=== PATIENT | female | born 1965 | race Caucasian/White ===

== ENCOUNTER 2017-06-01 16:31 | Emergency (ER) | payer OTHER ==
[~2017-06-01] VITALS: Ht 165.1 cm; Wt 114.6 kg
[2017-06-01] MEDS ORDERED: ARTHROTEC EC 71 EAC1 PO (16:41)
[2017-06-01] MEDS ORDERED: ADVAIR HFA 230M12 GM INH (16:42)
[2017-06-01] MEDS ORDERED: DETROL LA4 MG PO (16:42)
[2017-06-01] MEDS ORDERED: NEURONTIN 300300 M1 PO (16:42)
[2017-06-01] MEDS ORDERED: VENTOLIN HFA 1818 GM INH (16:43)
[2017-06-01 17:28] LABS: INFLUENZA B ANTIGEN None Detected (None Detect)
[2017-06-01 17:30] LABS: ABSOLUTE BASOPHILS 0.1 thou/uL (0.0-0.2); ABSOLUTE LYMPHOCYTES 2.1 thou/uL (0.8-5.3); ABSOLUTE MONOCYTES 0.7 thou/uL (0.0-1.2); ABSOLUTE NEUTROPHILS 3.2 thou/uL (1.6-8.1); EOSINOPHILS 0.2 %; HEMATOCRIT 43.8 % (37.0-47.0); HEMOGLOBIN 14.8 gm/dL (12.0-15.0); LYMPHOCYTES 33.9 %; MCH 30.5 pg (26.0-34.0); MCHC 33.9 g/dL (28.0-37.0); MONOCYTES 11.6 %; MPV 9.4 fl. (7.2-11.1); NUCLEATED RBCS 0 /100WBC; PLATELET COUNT* 162 thou/uL (150-400); POLYS 53.3 %; RBC 4.87 mil/uL (4.20-5.00); RDW-CV 13.7 % (10.5-14.5); WBC 6.1 thou/uL (4.0-11.0)
[2017-06-01 17:47] LABS: ANION GAP 6 mmol/L (7-16); BUN 8 mg/dL (7-18); CALCIUM 8.2 mg/dL (8.5-10.1); CHLORIDE 107 mmol/L (98-107); CO2 28 mmol/L (21-32); CREATININE 0.7 mg/dL (0.6-1.3); GLUCOSE 186 mg/dL (70-99); POTASSIUM 4.1 mmol/L (3.5-5.1); SODIUM 141 mmol/L (136-145)
[2017-06-01 17:59] LABS: ALBUMIN 2.7 g/dL (3.4-5.0); ALKALINE PHOSPHATASE 81 U/L (46-116); SGOT 43 U/L (15-37); SGPT 42 U/L (30-65); TOTAL BILIRUBIN 0.2 mg/dL (<0.1-1.0); TOTAL PROTEIN 7.3 g/dL (6.4-8.2); TROPONIN-I LEVEL <0.06 ng/mL (<0.06)
[2017-06-01] MEDS ORDERED: ZPAK PO (18:22)
[2017-06-01] MEDS ORDERED: PROMETHAZINE V473 ML PO (18:22)
[2017-06-01] MEDS ORDERED: PROAIR HFA8.5 GM INH (18:22)
[2017-06-01] MEDS ORDERED: TESSALON PERLE100 MG PO (18:22)
[2017-06-01] MEDS ORDERED: PREDNISONE 20 M20 MG PO (18:22)
[2017-06-01 18:49] VITALS: BP 142/68
== END 2017-06-01 18:50 | disposition home or self-care (01) ==
LOC: M.ERS 16:31
PROVIDERS: Physician Assistant
DX: J09.X2 Influenza due to identified novel influenza A virus with other respiratory manifestations (principal); J20.9 Acute bronchitis, unspecified; J44.9 Chronic obstructive pulmonary disease, unspecified; M19.90 Unspecified osteoarthritis, unspecified site; G62.9 Polyneuropathy, unspecified; F17.200 Nicotine dependence, unspecified, uncomplicated; Z88.8 Allergy status to other drugs, medicaments and biological substances

== ENCOUNTER 2020-01-10 16:10 | Emergency (ER) | payer OTHER ==
[~2020-01-10] VITALS: Ht 165.1 cm; Wt 113.4 kg
[~2020-01-10 16:10] MED LIST: ADVAIR HFA 230M12 GM INH; ARTHROTEC EC 71 EAC1 PO; DETROL LA4 MG PO; NEURONTIN 300300 M1 PO; PREDNISONE 20 M20 MG PO; PROAIR HFA8.5 GM INH; PROMETHAZINE V473 ML PO; TESSALON PERLE100 MG PO; VENTOLIN HFA 1818 GM INH; ZPAK PO
[2020-01-10 16:37] LABS: BE -2.3 mmol/L (-2 to +3); PCO2 VENOUS 41.1 mmHg (41.0-51.0); PO2 VENOUS 59.2 mmHg (35.0-45.0)
[2020-01-10 16:38] LABS: ABSOLUTE BASOPHILS 0.1 thou/uL (0.0-0.2); ABSOLUTE EOSINOPHILS 0.1 thou/uL (0.0-0.7); ABSOLUTE LYMPHOCYTES 3.4 thou/uL (0.8-5.3); ABSOLUTE MONOCYTES 0.5 thou/uL (0.0-1.2); ABSOLUTE NEUTROPHILS 5.8 thou/uL (1.6-8.1); BASOPHILS 1.3 %; EOSINOPHILS 1.4 %; LYMPHOCYTES 34.4 %; MCH 31.1 pg (26.0-34.0); MCHC 35.5 g/dL (28.0-37.0); MCV 87.6 fL (80.0-100.0); MONOCYTES 4.7 %; MPV 10.2 fl. (7.2-11.1); NUCLEATED RBCS 0 /100WBC; PLATELET COUNT* 166 thou/uL (150-400); POLYS 58.2 %; RBC 5.13 mil/uL (4.20-5.00); RDW-CV 13.2 % (10.5-14.5); WBC 9.9 thou/uL (4.0-11.0)
[2020-01-10 16:49] LABS: APTT 26.6 Seconds (25.0-31.3); PROTIME 10.2 Seconds (9.20-11.50)
[2020-01-10 16:54] LABS: URINE BILIRUBIN NEGATIVE (Negative); URINE BLOOD TRACE (Negative); URINE CLARITY CLEAR; URINE COLOR YELLOW; URINE GLUCOSE-RANDOM 3+ (Negative); URINE KETONES 1+ (Negative); URINE LEUKOCYTES-REFLEX NEGATIVE (Negative); URINE NITRITE-REFLEX NEGATIVE (Negative); URINE PROTEIN 2+ (Negative); URINE SPECIFIC GRAVITY >= 1.030 (1.005-1.030); URINE UROBILINOGEN 0.2 E.U./dl (0.2-1.0)
[2020-01-10 16:58] LABS: CALCIUM 8.5 mg/dL (8.5-10.1); POTASSIUM 4.2 mmol/L (3.5-5.1)
[2020-01-10 17:02] LABS: SQUAMOUS >10 Many /LPF (0-3)
[2020-01-10 17:03] LABS: BACTERIA-REFLEX 1-9 Few /HPF (None Seen); CRYSTALS None Seen /LPF (None Seen); HYALINE CASTS 0-3 Few /LPF (None Seen); MUCUS 0-3 Light strn/LPF (None Seen); URINE RBC 0-2 Rare /HPF (0-2); URINE WBC-REFLEX 6-15 Few /HPF (0-5)
[2020-01-10 17:09] LABS: ALBUMIN 3.3 g/dL (3.4-5.0); TOTAL BILIRUBIN 0.3 mg/dL (<0.1-1.0)
[2020-01-10] MEDS ORDERED: GLIPIZIDE 10 MG10 MG PO (17:23)
[2020-01-10] MEDS ORDERED: GLUCOPHAGE850 MG PO (17:23)
[2020-01-10] MEDS ORDERED: MACROBID 100 M100 M1 PO (17:23)
[2020-01-10] MEDS ORDERED: ZESTORETIC 20-1 EACH PO (17:23)
[2020-01-10 17:41] VITALS: BP 137/76
--- NOTE | 2020-01-11 10:42 | EKG ---
[place] [address] ELECTROCARDIOGRAM REPORT Name: ADIS BUSTOS Room: [facility]#: [id number] Admission: 01/10/20 Attend Phys: Discharge: 01/10/20 Date of : 61 Date of Service: 01/10/20 1624 Report #: [id number] THIS REPORT FOR: //name// [facility] ED Test Date: 2020-01-10 Test Time: 16:24:38 Pat Name: ADIS BUSTOS Department: Room: Gender: F [employer] Work[employer]: : 1965 Requested By: Mao Arriaza Order Number: [id number] MD: Chencho Lara Measurements Intervals [place] Rate: 85 P: 44 OR: 166 QRS: 13 QRSD: 84 T: 37 QT: 373 QTc: 444 Interpretive Statements Sinus rhythm Baseline wander in lead(s) II,III,aVF No previous ECG available for comparison Electronically Signed On 01-11-2020 10:42:47 CDT by Chencho Lara [email or web address] <ELECTRONICALLY SIGNED> By: Chencho Lara MD, [facility] 01/11/20 1042 1624 1624 Chencho Lara MD, [facility] /EPI
== END 2020-01-10 17:41 | disposition home or self-care (01) ==
LOC: M.ERS 16:10
PROVIDERS: Family Medicine
DX: I10 Essential (primary) hypertension (principal); E11.9 Type 2 diabetes mellitus without complications; N39.0 Urinary tract infection, site not specified; J44.9 Chronic obstructive pulmonary disease, unspecified; M19.90 Unspecified osteoarthritis, unspecified site; G62.9 Polyneuropathy, unspecified; F17.210 Nicotine dependence, cigarettes, uncomplicated; Z90.710 Acquired absence of both cervix and uterus; Z88.8 Allergy status to other drugs, medicaments and biological substances

== ENCOUNTER 2020-05-04 14:38 | Emergency (ER) | payer OTHER ==
[~2020-05-04] VITALS: Ht 165.1 cm; Wt 94.3 kg
[~2020-05-04 14:38] MED LIST changes: +GLIPIZIDE 10 MG10 MG PO; +GLUCOPHAGE850 MG PO; +MACROBID 100 M100 M1 PO; +ZESTORETIC 20-1 EACH PO
[2020-05-04] MEDS ORDERED: AZO URINARY TR1 EAC1 PO (14:56)
[2020-05-04] MEDS ORDERED: ASA81BEC PO (14:56)
[2020-05-04] MEDS ORDERED: BACLOFEN 10MG T10 MG PO (14:56)
[2020-05-04] MEDS ORDERED: NAPROSYN500 M1 PO (14:56)
[2020-05-04] MEDS ORDERED: ZINC SULFATE220 MG PO (14:56)
[2020-05-04] MEDS ORDERED: VITAMIN D310 MC4 PO (14:57)
[2020-05-04] MEDS ORDERED: MELATONIN5 MG SUBLING (14:57)
[2020-05-04] MEDS ORDERED: CRANBERRY200 MG PO (14:57)
[2020-05-04 15:27] LABS: ABSOLUTE BASOPHILS 0.1 thou/uL (0.0-0.2); ABSOLUTE EOSINOPHILS 0.1 thou/uL (0.0-0.7); ABSOLUTE MONOCYTES 0.6 thou/uL (0.0-1.2); ABSOLUTE NEUTROPHILS 5.9 thou/uL (1.6-8.1); BASOPHILS 0.6 %; EOSINOPHILS 1.4 %; HEMATOCRIT 37.6 % (37.0-47.0); LYMPHOCYTES 30.9 %; MCH 30.7 pg (26.0-34.0); MCHC 34.5 g/dL (28.0-37.0); MONOCYTES 6.4 %; MPV 9.2 fl. (7.2-11.1); NUCLEATED RBCS 0 /100WBC; PLATELET COUNT* 240 thou/uL (150-400); POLYS 60.7 %; RBC 4.22 mil/uL (4.20-5.00); RDW-CV 13.8 % (10.5-14.5); WBC 9.7 thou/uL (4.0-11.0)
[2020-05-04 15:36] LABS: CALCIUM 9.4 mg/dL (8.5-10.1); CREATININE 0.9 mg/dL (0.6-1.3); POTASSIUM 4.6 mmol/L (3.5-5.1)
[2020-05-04 15:46] LABS: ALBUMIN 3.8 g/dL (3.4-5.0); TOTAL BILIRUBIN 0.3 mg/dL (<0.1-1.0); TOTAL PROTEIN 7.7 g/dL (6.4-8.2)
[2020-05-04 15:50] LABS: URINE BILIRUBIN NEGATIVE (Negative); URINE BLOOD NEGATIVE (Negative); URINE CLARITY CLEAR; URINE COLOR YELLOW; URINE GLUCOSE-RANDOM NEGATIVE (Negative); URINE KETONES NEGATIVE (Negative); URINE LEUKOCYTES-REFLEX NEGATIVE (Negative); URINE NITRITE-REFLEX NEGATIVE (Negative); URINE PROTEIN NEGATIVE (Negative); URINE UROBILINOGEN 0.2 E.U./dl (0.2-1.0)
[2020-05-04 16:01] LABS: AMP/METHAMP Negative (Negative); BARBITURATES Negative (Negative); BENZODIAZEPINES Negative (Negative); COCAINE Negative (Negative); METHADONE Negative (Negative); OPIATES Negative (Negative); PCP Negative (Negative); THC Negative (Negative)
[2020-05-04] MEDS ORDERED: NEURONTIN 300M300 M2 PO (16:22)
[2020-05-04 16:25] VITALS: BP 130/75
--- NOTE | 2020-05-05 09:19 | EKG ---
[place] [address] ELECTROCARDIOGRAM REPORT Name: ADIS BUSTOS Room: [facility]#: [id number] Admission: 05/04/20 Attend Phys: Discharge: 05/04/20 Date of : 61 Date of Service: 05/04/20 1513 Report #: [id number] THIS REPORT FOR: //name// [facility] ED Test Date: 2020-05-04 Test Time: 15:13:03 Pat Name: ADIS BUSTOS Department: Room: Gender: F [employer] Inspector: [facility] : 1965 Requested By: Sade Ledezma Order Number: [id number] MD: Michele Friend Measurements Intervals [place] Rate: 79 P: 18 VT: 157 QRS: 35 QRSD: 84 T: 30 QT: 365 QTc: 419 Interpretive Statements Sinus rhythm Low voltage, precordial leads Compared to ECG 01/10/2020 16:24:38 Low QRS voltage now present Electronically Signed On 05-05-2020 9:18:54 [employer] by Michele Friend [email or web address] <ELECTRONICALLY SIGNED> By: Michele Friend MD, [facility] 05/05/20 0918 1513 1513 Michele Friend MD, [facility] /EPI
== END 2020-05-04 16:28 | disposition home or self-care (01) ==
LOC: M.ERS 14:38
PROVIDERS: Physician Assistant
DX: R20.2 Paresthesia of skin (principal); G62.9 Polyneuropathy, unspecified; J44.9 Chronic obstructive pulmonary disease, unspecified; E78.5 Hyperlipidemia, unspecified; Z90.710 Acquired absence of both cervix and uterus; Z79.899 Other long term (current) drug therapy; Z88.0 Allergy status to penicillin; Z88.8 Allergy status to other drugs, medicaments and biological substances